=== PATIENT | female | born 1975 | race Caucasian/White ===

== ENCOUNTER 2021-05-30 16:46 | Emergency (ER) | payer OTHER, SELFPAY ==
[2021-05-30 16:52] VITALS: BP 155/91; PULSE 87; RESP 14; TEMP 36.7; O2SAT 100
--- NOTE | 2021-05-30 17:29 | ED.URI ---
HPI - URI/Sore Throat General Chief Complaint: Headache Stated Complaint: stress and headache Source: patient, RN notes reviewed and old records reviewed Mode of arrival: ambulatory Limitations: no limitations History of Present Illness MD elicited complaint: cough, sore throat, rhinorrhea and nasal congestion Related Data Home Medications Medication Instructions Recorded Confirmed abatacept (with maltose) [Orencia 500 mg IV MONTHLY 05/30/21 05/30/21 (with maltose)] ergocalciferol (vitamin D2) 1,250 mcg PO WEEKLY 05/30/21 05/30/21 [Vitamin D2] folic acid 1 mg PO BID 05/30/21 05/30/21 hydroxychloroquine [Plaquenil] 200 mg PO BID 05/30/21 05/30/21 Allergies Allergy/AdvReac Type Severity Reaction Status Date / Time Sulfa (Sulfonamide Allergy Unknown Rash Verified 05/30/21 17:03 Antibiotics) Review of Systems Review of Systems: CONSTITUTIONAL: Denies malaise, chills, sweats, or fever. EYES: Denies visual changes, redness, or discharge. ENT: Reports rhinorrhea, congestion, sinus pain, otalgia and sore throat. CARDIOVASCULAR: Denies chest pain, palpitations, or edema. RESPIRATORY: Reports cough. Denies dyspnea. GASTROINTESTINAL: Denies abdominal pain, nausea, vomiting, diarrhea SKIN: Denies rash or itching. MUSCULOSKELETAL: Denies myalgia. NEUROLOGIC: Denies headache. All systems reviewed & are unremarkable except as noted in HPI and below PMFSH Comments At time of signature, agree with nursing past medical, surgical, social and family history. There is no relevant family history pertinent to the presenting complaint Exam Narrative: GENERAL: Well-appearing, well-nourished, and in no acute distress. HEAD: Normocephalic EYES: PERRLA, conjunctivae clear ENT: Nares clear, turbinates edematous and erythematous, clear discharge. Mucous membranes moist. TM pearly joseph with dull light reflex bilaterally; no tragal tenderness. Oropharynx erythematous without lesions. Tonsils enlarged and without exudate, no drooling, no hoarseness, no trismus, uvula midline. NECK: Supple. No lymphadenopathy CHEST: Clear to auscultation, breath sounds equal. No wheezing, rhonchi, rales, or stridor. No respiratory distress, speaks in full sentences. HEART: Regular rate and rhythm. No murmur heard. SKIN: Warm, dry, no rash. NEURO: Alert and oriented x3. PSYCH: Normal mood and affect Course Course Emergency Course: Patient is aware of diagnosis, understands and agrees to treatment plan. Anticipatory guidance given. Patient agrees to follow-up as directed and is aware of reasons to seek care at the emergency department. Portions of this record may have been created with voice recognition software Level of Care: Express Care Visit Vital Signs Vital signs: Vital Signs Temperature 36.7 C 05/30/21 16:52 Pulse Rate 87 05/30/21 16:52 Respiratory Rate 14 05/30/21 16:52 Blood Pressure 155/91 H 05/30/21 16:52 Pulse Oximetry 100 05/30/21 16:52 Temperature 36.7 C 05/30/21 16:52 Pulse Rate 87 05/30/21 16:52 Respiratory Rate 14 05/30/21 16:52 Blood Pressure 155/91 H 05/30/21 16:52 Pulse Oximetry 100 05/30/21 16:52 MDM - URI/Sore Throat MDM Narrative Medical decision making narrative: Differential diagnosis considered: Cook virus, strep pharyngitis, allergic rhinitis, upper respiratory tract infection, sinusitis, rhinosinusitis, nasopharyngitis. viral pharyngitis, otitis media, otitis externa, pneumonia, bronchitis, viral cough syndrome, viral syndrome, and influenza. Exam findings show no acute concerns or changes; patient is non-toxic appearing and is in no distress. Patient is appropriate for outpatient treatment and follow-up. Critical Care Time Critical Care Time Critical Care Time: No Discharge Plan Discharge Prescriptions: No Action Orencia (with maltose) 250 mg Recon Soln 500 mg IV MONTHLY RF: 0 folic acid 1 mg Tablet 1 mg PO BID RF: 0 ergocalciferol (vitamin D2) [Vitamin D2
--- NOTE | 2021-05-30 17:33 | ED.HA ---
HPI - Headache General Chief Complaint: Headache Stated Complaint: stress and headache Time Seen by Provider: 05/30/21 17:34 Source: patient, RN notes reviewed and old records reviewed Mode of arrival: ambulatory Limitations: no limitations History of Present Illness MD elicited complaint: headache Related Data Home Medications Medication Instructions Recorded Confirmed abatacept (with maltose) [Orencia 500 mg IV MONTHLY 05/30/21 05/30/21 (with maltose)] ergocalciferol (vitamin D2) 1,250 mcg PO WEEKLY 05/30/21 05/30/21 [Vitamin D2] folic acid 1 mg PO BID 05/30/21 05/30/21 hydroxychloroquine [Plaquenil] 200 mg PO BID 05/30/21 05/30/21 Allergies Allergy/AdvReac Type Severity Reaction Status Date / Time Sulfa (Sulfonamide Allergy Unknown Rash Verified 05/30/21 17:03 Antibiotics) Review of Systems Review of Systems: CONSTITUTIONAL: Denies malaise, chills, sweats, fatigue or fever. Reports lightheadedness with movement at times. EYES: Denies visual changes, redness, or discharge. ENT: Denies congestion, sinus pain, otalgia or sore throat. Reports runny nose. CARDIOVASCULAR: Denies chest pain, palpitations, or edema. RESPIRATORY: Denies cough or dyspnea. GASTROINTESTINAL: Denies abdominal pain, nausea, vomiting, diarrhea, bloody, or mucous stools. SKIN: Denies rash or itching. MUSCULOSKELETAL: Denies back pain, joint pain, or myalgia. NEUROLOGIC: Denies numbness, weakness. Reports headache. PSYCHIATRIC: Denies anxiety or depression. All systems reviewed & are unremarkable except as noted in HPI and below PMFSH Comments At time of signature, agree with nursing past medical, surgical, social and family history. There is no relevant family history pertinent to the presenting complaint Exam Narrative: GENERAL: Well-appearing, well-nourished, female and in no acute distress. Pleasant cooperative. Casually dressed and neatly groomed. HEAD: Normocephalic, atraumatic. EYES: conjunctivae clear, and EOMI. No nystagmus. ENT: Nares clear, turbinates pink, no rhinorrhea or epistaxis. Mucous membranes moist. TM pearly joseph with sharp light reflex bilaterally; air bubbles bilateral retrotympanic, no tragal tenderness. Oropharynx without erythema or lesions. Tonsils not enlarged and without exudate. NECK: Supple. No lymphadenopathy or tenderness with palpation. No jugular venous distension, thyromegaly, or carotid bruits. Carotids were easily palpable bilaterally. CHEST: No respiratory distress. Clear to auscultation anterior and posterior. No bony deformities, no asymmetry. Speaks in full sentences. HEART: Regular rate and rhythm. No murmur heard. Normal peripheral pulses. SKIN: Sunrise warm, dry, no rash. NEURO: Alert and oriented x3. No focal deficits. Cranial nerves II through XII grossly intact PSYCH: Normal mood and affect Course Course Emergency Course: Patient is aware of diagnosis, understands and agrees to treatment plan. Anticipatory guidance given. Patient agrees to follow-up as directed and is aware of reasons to seek care at the emergency department. Portions of this record may have been created with voice recognition software Level of Care: Express Care Visit Vital Signs Vital signs: Vital Signs Temperature 36.7 C 05/30/21 16:52 Pulse Rate 87 05/30/21 16:52 Respiratory Rate 14 05/30/21 16:52 Blood Pressure 155/91 H 05/30/21 16:52 Pulse Oximetry 100 05/30/21 16:52 Temperature 36.7 C 05/30/21 16:52 Pulse Rate 87 05/30/21 16:52 Respiratory Rate 14 05/30/21 16:52 Blood Pressure 152/92 H 05/30/21 17:57 Pulse Oximetry 100 05/30/21 16:52 MDM - Headache MDM Narrative Medical decision making narrative: The patient presents with an acute onset headache for <1 day in duration. Patient has no past history of headaches. There is not a history of anticoagulation, trauma, , cancer or immunocompromised state. Mental status was normal, no neurological deficits were noted. Diff
[2021-05-30 17:57] VITALS: BP 152/92
== END 2021-05-30 17:57 | disposition home or self-care (01) ==
PROVIDERS: Emergency Provider Nurse Practitioner Family; PCP Internal Medicine Geriatric Medicine
DX: R03.0 Elevated blood-pressure reading, without diagnosis of hypertension (principal); R51.9 Headache, unspecified; J30.9 Allergic rhinitis, unspecified; Z98.84 Bariatric surgery status; N80.9 Endometriosis, unspecified
CPT/HCPCS: 99202; G0463

== ENCOUNTER 2023-03-27 08:00 | Outpatient (RCR) | payer OTHER, SELFPAY ==
--- NOTE | 2023-01-27 08:44 | OTOPEVAL1 ---
Assessment and note entered by Eric Lopez, STEPHIE/Abhijit, CHT Evaluation Information Assessment Status Evaluation Diagnosis carpal tunnel syndrome, right; entrapment of both ulnar nerves Subjective Information Patient reports experiencing symptoms of carpal tunnel syndrome on the right for ~6 months. She sought out treatment due to the symptoms waking her up at night. Reports symptoms resolve after she gets up and gets moving. Reports ulnar nerve symptoms when laying in bed on her phone, noticing this has gotten worse over the last 4 months or so. She is right handed. Reports feeling weak. No pain, just discomfort in bilateral hands. Reported Pain Level Pain Score 0: Self Report Assessment OT Clinical Summary Patient referred to OT with dx of right carpal tunnel syndrome and bilateral cubital tunnel syndrome. She presents with preserved sensation and strength, just intermittent paresthesias and discomfort. Provided education on both dx as well as recommendations for splints and UE positioning during the day and at night. Recommend continued skilled OT to progress HEP as tolerated, modalities, manual therapy, and therapeutic exercise to facilitate reduced nerve entrapment and improved function UE use. Plan of Care Interventions Therapeutic Exercise,Manual Therapy,Therapeutic Activities,Check Out for Orthotic/Pr,Ultrasound, Paraffin OT Services Indicated Yes Treatment Frequency and 1x/week for 4 weeks Duration These treatments will address the objective and functional deficits as defined above. The patient will be advanced safely and appropriately in order for the patient to progress towards his/her prior level of function. Additional exercises will be introduced and as well as a comprehensive home exercise program upon discharge, if needed, ?to ensure carryover of functional gains achieved in the clinic. This treatment plan has been reviewed and agreement upon by the patient.
--- NOTE | 2023-01-27 08:45 | OPREHPOC ---
Outpatient Therapy Plan of Care This is a Multidisciplinary Plan of Care that may contain components documented by all disciplines (PT, OT, and ST.) OT Problem 1 OT Problem #1 Knowledge Deficit OT Goal 1 Goal 1. Patient to be independent with instructed materials. 2. Patient to adhere to splint wearing schedule ( at night). Target Visit 5 OT Problem 2 OT Problem #2 Impaired Functional ADLs OT Goal 1 Goal 1. Patient to report improved functional UE use for ADLs due to reduced right carpal tunnel and bilateral cubital tunnel symptoms. 2. Report improved ability to open jars. Target Visit 5 OT Problem 3 OT Problem #3 Impaired Sensation OT Goal 1 Goal 1. Report reduced night time paresthesias. Target Visit 5
--- NOTE | 2023-02-24 09:29 | PTOPEVAL1 ---
Assessment and note entered by Davi Leone, PT Evaluation Information Assessment Status Evaluation Diagnosis Myofascial pain, foot pain Onset 2 years ago approximately Subjective Information Reports that she has a history of RA and fibromyalgia. Seems to be getting worse over the past couple of years. Reports that she has been having some numbness in her left great toe. Overall left leg does not feel quite as sensitive. She has history of broken tailbone. Occasionally has pain in both of her hips and legs. She is currently on infusions for RA. Feels pain when she has bret more active. Restless legs at night when sitting and laying down. The restless leg feeling is not painful but shifting. She is currently on gabapentin 3mg at night. Reported Pain Level Pain Score 4: Self Report Assessment PT Clinical Summary Patient presents with mm imbalance in hips coupled with weakness and altered gait mechanics. Patient will benefit from skilled therapy to address strength and mobility deficits to maximize pain free function and ADL performance. Needs emphasis on hip strength and core activation. Plan of Care Interventions Electrical Stimulation,Gait Training,Manual Therapy,Neuro Re-education,Therapeutic Activities, Therapeutic Exercise PT Services Indicated Yes Treatment Frequency and 1-2x/week for 4 weeks Duration These treatments will address the objective and functional deficits as defined above. The patient will be advanced safely and appropriately in order for the patient to progress towards his/her prior level of function. Additional exercises will be introduced and as well as a comprehensive home exercise program upon discharge, if needed, ?to ensure carryover of functional gains achieved in the clinic. This treatment plan has been reviewed and agreement upon by the patient.
--- NOTE | 2023-02-24 09:30 | OPREHPOC ---
Outpatient Therapy Plan of Care This is a Multidisciplinary Plan of Care that may contain components documented by all disciplines (PT, OT, and ST.) PT Problem 1 PT Problem #1 Knowledge Deficit PT Goal 1 Goal Independent with HEP Target Visit 4 PT Problem 2 PT Problem #2 Pain PT Goal 1 Goal Report ability to ambulate for 50 feet with no increased hip pain Target Visit 8 PT Problem 3 PT Problem #3 Impaired Strength PT Goal 1 Goal Improve peterson hip abduction strength to 4+/5 to improve pelvic stability with ADLs Target Visit 8 PT Goal 2 Goal Improve peterson hip abduction strength to 4+/5 to improve foot progression and clearance with gait activity Target Visit 8 PT Problem 4 PT Problem #4 Impaired Strength PT Goal 1 Goal Improve lower abdominal strenght to 4/5 to improve lumbar stability to decompress sciatic nerve and help prevent radicular symptoms with ADLs Target Visit 8 OT Problem 1 OT Problem #1 Knowledge Deficit OT Goal 1 Goal 1. Patient to be independent with instructed materials. 2. Patient to adhere to splint wearing schedule ( at night). Target Visit 5 OT Problem 2 OT Problem #2 Impaired Functional ADLs OT Goal 1 Goal 1. Patient to report improved functional UE use for ADLs due to reduced right carpal tunnel and bilateral cubital tunnel symptoms. 2. Report improved ability to open jars. Target Visit 5 OT Problem 3 OT Problem #3 Impaired Sensation OT Goal 1 Goal 1. Report reduced night time paresthesias. Target Visit 5
--- NOTE | 2023-02-24 10:21 | OTOPDC ---
Assessment and note entered by STEPHIE Perez/Abhijit, T Discharge Summary 02/24/23 Diagnosis carpal tunnel syndrome, right; entrapment of both ulnar nerves Subjective Information Patient reports no carpal tunnel symptoms in the right hand when waking up in the morning. She has been wearing a wrist cock up brace to sleep. She reports bilateral ulnar nerve paresthesias and pain have reduced to couple times a week and overall not as severe as it was a month ago. She reports still feeling weak. [place] monofilament testing today is normal. 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 Bilateral pinch strengths improved to normal limits. Assessment OT Clinical Summary Patient referred to OT with dx of right carpal tunnel syndrome and bilateral cubital tunnel syndrome. She has made excellent progress with therapy and has been compliant with night splinting. She continues to measure normal sensation, intact and functional strength, and overall reduction in paresthesias, only experiencing them a couple times a week. She is currently independent with all materials and in agreement with discharge. Plan of Care OT Services Indicated No
--- NOTE | 2023-03-27 09:26 | PTOPDC ---
Assessment and note entered by Davi Leone, PT Evaluation Information Assessment Status Discharge Diagnosis Myofascial pain, foot pain Onset 2 years ago approximately Subjective Information Patient reports that she is doing well overall. She is still having occasional pain but she has been able to walk better. She is still fatigued at conclusion of walking and feels a bit inflamed. 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 She has been consistent with exercises. No difficulty with stairs or initiating ambulation after sitting. Majority of issues remaining are on low back and R hip. Reported Pain Level Pain Score 4: Self Report Assessment PT Clinical Summary Patient has meta ll goals for therapy and is suitable for discharge to [facility] at this time. Will continue to emphasize [facility] for hip strength and gait correction. We discussed implementing insoles to prevent arch collapse during gait. Plan of Care PT Services Indicated D/C to HEP
--- NOTE | 2023-03-27 09:27 | OPREHPOC ---
Outpatient Therapy Plan of Care This is a Multidisciplinary Plan of Care that may contain components documented by all disciplines (PT, OT, and ST.) PT Problem 1 PT Problem #1 Knowledge Deficit PT Goal 1 Goal Independent with HEP Target Visit 4 Progress Met PT Problem 2 PT Problem #2 Pain PT Goal 1 Goal Report ability to ambulate for 50 feet with no increased hip pain Target Visit 8 Progress Met PT Problem 3 PT Problem #3 Impaired Strength PT Goal 1 Goal Improve peterson hip abduction strength to 4+/5 to improve pelvic stability with ADLs Target Visit 8 Progress Met PT Goal 2 Goal Improve peterson hip flexion strength to 4+/5 to improve foot progression and clerance with gait activity Target Visit 8 Progress Met PT Problem 4 PT Problem #4 Impaired Strength PT Goal 1 Goal Improve lower abdominal strenght to 4/5 to improve lumbar stability to decompress sciatic nerve and help prevent radicular symptoms with ADLs Target Visit 8 Progress Partially Met Comment Improved but still lacking OT Problem 1 OT Problem #1 Knowledge Deficit OT Goal 1 Goal 1. Patient to be independent with instructed materials. 2. Patient to adhere to splint wearing schedule ( at night). ---OT D/C 02/24/23-- 1. Met 2. Met Target Visit 5 OT Problem 2 OT Problem #2 Impaired Functional ADLs OT Goal 1 Goal 1. Patient to report improved functional UE use for ADLs due to reduced right carpal tunnel and bilateral cubital tunnel symptoms. 2. Report improved ability to open jars. ---OT D/C 02/24/23-- 1. Met 2. Met
== END 2023-03-27 12:59 | disposition home or self-care (01) ==
LOC: ANHPT 08:00
PROVIDERS: PCP Internal Medicine Geriatric Medicine; Visit Provider Internal Medicine Geriatric Medicine
DX: M79.18 Myalgia, other site (principal); G56.01 Carpal tunnel syndrome, right upper limb; G56.23 Lesion of ulnar nerve, bilateral upper limbs
CPT/HCPCS: 97018; 97110; 97116; 97140; 97161; 97166; 97530